=== PATIENT | female | born 1955 | race Caucasian/White ===

== ENCOUNTER → 2021-04-04 | Outpatient (CLI) | payer OTHER | LOC: EXRD 11:08 | DX: M06.9 Rheumatoid arthritis, unspecified (principal); M25.542 Pain in joints of left hand; M25.541 Pain in joints of right hand; M19.042 Primary osteoarthritis, left hand; M19.041 Primary osteoarthritis, right hand | CPT/HCPCS: 73130 ==

== ENCOUNTER → 2021-10-01 | Outpatient (CLI) | payer OTHER | LOC: EXRD 10:11 | DX: M06.9 Rheumatoid arthritis, unspecified (principal); M25.551 Pain in right hip; M47.816 Spondylosis without myelopathy or radiculopathy, lumbar region | CPT/HCPCS: 72100; 73502 ==